=== PATIENT | female | born 1940 | race Asian ===

== ENCOUNTER → 2024-04-09 | Outpatient (CLI) | payer OTHER, MEDICAID, SELFPAY ==
[2024-04-09 10:00] LABS: Collection Type, Urine Clean Catch
[2024-04-09 10:17] LABS: Basophils # (Auto) 0.1 Thou/mm3 (0.0-0.2); Basophils % (Auto) 1 % (0-2.5); Eosinophils # (Auto) 0.3 Thou/mm3 (0.0-0.5); Eosinophils % (Auto) 3 % (0-10); Hematocrit 45.1 % (36.0-46.0); Hemoglobin 13.5 g/dL (12.0-16.0); Immature Granulocytes % (Auto) 0 % (0-0); Immature Granulocytes Auto 0.03 Thou/mm3 (0.00-0.00); Lymphocytes # (Auto) 3.1 Thou/mm3 (1.0-4.8); Lymphocytes % (Auto) 40 % (10-50); Mean Corpuscular HGB Conc 29.9 g/dl (31.0-37.0); Mean Corpuscular Volume 70 fL (80-100); Monocytes # (Auto) 0.5 Thou/mm3 (0.0-0.8); Monocytes % (Auto) 7 % (0-12); Neutrophils # (Auto) 3.8 Thou/mm3 (1.8-7.7); Neutrophils % (Auto) 49 % (37-80); Nucleated Red Blood Cell % 0 /100 WBC (0); Platelet Count 335 Thou/mm3 (140-440); RDW Standard Deviation 36.6 fL (36.4-46.3); Red Blood Count 6.44 Miln/mm3 (4.00-5.20); White Blood Count 7.7 Thou/mm3 (3.6-11.0)
[2024-04-09 10:30] LABS: Parathyroid Hormone Intact 49.3 pg/ml (18.5-88.0)
[2024-04-09 10:35] LABS: Alanine Aminotransferase 11 U/L (10-49); Albumin, Serum 4.2 gm/dL (3.4-4.8); Albumin/Globulin Ratio 1.7 (1.2-2.2); Alkaline Phosphatase 51 U/L (46-116); Anion Gap 10 (7-16); Aspartate Amino Transferase 18 U/L (0-34); BUN/Creatinine Ratio 22 Ratio (12-20); Bilirubin,Total 0.4 mg/dL (0.3-1.2); Blood Urea Nitrogen 29 mg/dL (9-23); Calcium 10.5 mg/dL (8.3-10.6); Calcium (Corrected) 10.5 mg/dL (8.5-10.1); Carbon Dioxide 27.1 mMol/L (20.0-31.0); Cardiac Risk Estimate 2.2 RATIO (3.7-5.6); Chloride 103 mMol/L (98-107); Cholesterol 128 mg/dL (132-200); Creatinine (Component) 1.3 mg/dL (0.6-1.3); Globulin 2.5 gm/dL (2.3-3.5); Glucose 257 mg/dL (74-106); HDL Cholesterol 58 mg/dL (40-60); LDL Cholesterol,Calculated 31 mg/dL (0-130); Osmolality,Calculated 294 (275-295); Sodium 140 mMol/L (136-145); Thyroid Stimulating Hormone 2.49 uIU/mL (0.55-4.78); Total Protein 6.7 gm/dL (5.7-8.2); Triglycerides 197 mg/dL (30-150); eGFR 41 See Note
[2024-04-09 10:41] LABS: Bacteria,Urine 3+; Bilirubin,Urine Negative (Negative); Blood,Urine Trace (Negative); Clarity,Urine Turbid (Clear/Hazy); Color,Urine Lt-Yellow (Lt Yel-Yel); Glucose, Urine 4+ (Negative); Ketones,Urine Negative (Negative); Leukocyte Esterase,Urine Positive (Negative); Nitrite,Urine Negative (Negative); Protein,Urine Trace (Neg - Trace); RBC,Urine 9 /hpf (0-3); Specific Gravity,Urine 1.022 (1.001-1.035); Squamous Epithelial Cell,Urine 1 /hpf (0-5); Urobilinogen,Urine Negative mg/dL (0.0-1.0); WBC,Urine 267 /hpf (0-5)
[2024-04-09 10:44] LABS: Creatinine MALB Rnd Ur 43 mg/dL (30-125); Microalbumin Creat Ratio 147 mg/gCrea (<30); Microalbumin, Random Urine 63 mg/L (0-300)
[2024-04-09 10:47] LABS: Glucose Estimated Average 200 mg/dL (80-131); Hemoglobin A1C 8.6 % Hgb (4.8-6.0)
== END | disposition home or self-care (01) ==
LOC: COPL 09:10
PROVIDERS: PCP Internal Medicine; Referring Provider Internal Medicine; Visit Provider Internal Medicine
DX: I12.9 Hypertensive chronic kidney disease with stage 1 through stage 4 chronic kidney disease, or unspecified chronic kidney disease (principal); E11.22 Type 2 diabetes mellitus with diabetic chronic kidney disease; N18.30 Chronic kidney disease, stage 3 unspecified; E78.5 Hyperlipidemia, unspecified
CPT/HCPCS: 36415; 80053; 80061; 81001; 82043; 82570; 83036; 83970; 84443; 85025

== ENCOUNTER → 2024-08-27 | Outpatient (CLI) | payer OTHER, MEDICAID, SELFPAY ==
[2024-08-27 09:46] LABS: Misc Send Out* See Sep Rpt
[2024-08-27 10:44] LABS: Glucose Estimated Average 166 mg/dL (80-131); Hemoglobin A1C 7.4 % Hgb (4.8-6.0)
[2024-08-27 10:49] LABS: Creatinine,Random Urine 70 mg/dL (30-125)
[2024-08-27 10:50] LABS: Parathyroid Hormone Intact 85.8 pg/ml (18.5-88.0)
[2024-08-27 10:53] LABS: Albumin, Serum 4.2 gm/dL (3.4-4.8); Anion Gap 9 (7-16); BUN/Creatinine Ratio 14 Ratio (12-20); Blood Urea Nitrogen 15 mg/dL (9-23); Calcium 9.2 mg/dL (8.3-10.6); Calcium (Corrected) 9.2 mg/dL (8.5-10.1); Carbon Dioxide 25.1 mMol/L (20.0-31.0); Chloride 111 mMol/L (98-107); Creatinine (Component) 1.1 mg/dL (0.6-1.3); Glucose 146 mg/dL (74-106); Osmolality,Calculated 292 (275-295); Phosphorous 3.2 mg/dL (2.4-5.1); Potassium 3.4 mMol/L (3.4-5.1); Sodium 145 mMol/L (136-145); eGFR 50 See Note
[2024-08-27 10:57] LABS: Vitamin D 25 Hydroxy Total 46.6 ng/mL (7.3-40.2)
== END | disposition home or self-care (01) ==
LOC: COPL 08:02
PROVIDERS: PCP Internal Medicine; Referring Provider Internal Medicine; Visit Provider Internal Medicine
DX: N17.9 Acute kidney failure, unspecified (principal); I10 Essential (primary) hypertension; E78.5 Hyperlipidemia, unspecified
CPT/HCPCS: 36415; 80069; 82306; 82570; 83036; 83970

== ENCOUNTER → 2024-09-22 | Outpatient (CLI) | payer OTHER, MEDICAID, SELFPAY ==
--- NOTE | 2024-09-22 12:30 | XR_ITS ---
Examination: Retroperitoneal ultrasound, complete Technique: Multiple high resolution grayscale images of the retroperitoneum obtained, including kidneys and bladder. Exam date and time:September 22, 2024 1257 hours INDICATIONS: Diagnosis acute kidney failure with tubular necrosis diagnosed 4 months ago FINDINGS: Right kidney 9.9 cm cortex 1.7 cm Left kidney 13.0 cm cortex 1.0 cm Significant left hydronephrosis 10 mm 39 mm calcifications mid pole left kidney Contracted urinary bladder 5 cm calcification lateral to the bladder on the right IMPRESSION: Left renal calculi with significant left hydronephrosis Calcification right lateral to the bladder Recommend CT scan abdomen pelvis without contrast follow-up
--- NOTE | 2024-09-22 13:20 | XR_ITS ---
Examination: Bone densitometry Date and time of exam:September 22, 2024 1324 hours INDICATIONS: Menopause age 45 vitamin D and calcium 6 months, personal history osteoporosis Technique: Lumbar spine and hip total bone mineralization values of an calculated. Peak reference and age match control results have been displayed. Findings: Lumbar spine total bone mineralization is0.927 gm/cm2. This is 1.1 standard deviations below peak reference. This is 1.8 standard deviations above age-matched controls. Hip total bone mineralization is 0.775 gm/cm2 This is 1.4 standard deviations below peak reference. This is 0.9 standard deviations above age-matched controls Impression: There is osteopenia based on lumbar spine measurements. There is osteopenia based on hip measurements Lumbar mineralization is increased 1.2% compared with September 03, 2022 Hip mineralization is increased 1.1% compared with September 03, 2022
--- NOTE | 2024-09-22 13:45 | XR_ITS ---
Examination: Screening digital mammography, bilateral Computer aided detection 3-D breast Tomosynthesis, bilateral Date and time of exam: September 22, 2024 1250 hours Compared to mammograms dating to May 20, 2015 Indication: Screening Technique: Nonmagnified MLO, CC views of the breasts to been obtained, reconstructed from 3-D Tomosynthesis images. R2 computer aided detection program utilized for evaluation of suspicious masses and/or abnormal calcifications. 3-D Tomosynthesis images obtained. Findings: Scattered areas of fibroglandular density. Benign calcifications. No interval suspicious masses Impression: BI-RADS category II: Benign Findings. Recommend 1 year follow-up mammogram.
== END | disposition home or self-care (01) ==
LOC: CDIM 12:34
PROVIDERS: PCP Internal Medicine; Referring Provider Internal Medicine; Visit Provider Internal Medicine
DX: Z12.31 Encounter for screening mammogram for malignant neoplasm of breast (principal); R92.323 Mammographic fibroglandular density, bilateral breasts; R92.1 Mammographic calcification found on diagnostic imaging of breast; N13.2 Hydronephrosis with renal and ureteral calculous obstruction; N32.89 Other specified disorders of bladder; M85.89 Other specified disorders of bone density and structure, multiple sites
CPT/HCPCS: 76770; 77063; 77067; 77080

== ENCOUNTER → 2024-10-20 | Outpatient (CLI) | payer OTHER, MEDICAID, SELFPAY ==
[2024-10-20 08:48] LABS: Glucose Estimated Average 180 mg/dL (80-131); Hemoglobin A1C 7.9 % Hgb (4.8-6.0)
[2024-10-20 08:59] LABS: Basophils # (Auto) 0.1 Thou/mm3 (0.0-0.2); Basophils % (Auto) 1 % (0-2.5); Eosinophils # (Auto) 0.2 Thou/mm3 (0.0-0.5); Eosinophils % (Auto) 2 % (0-10); Hematocrit 42.5 % (36.0-46.0); Hemoglobin 13.0 g/dL (12.0-16.0); Immature Granulocytes Auto 0.04 Thou/mm3 (0.00-0.00); Lymphocytes # (Auto) 3.0 Thou/mm3 (1.0-4.8); Lymphocytes % (Auto) 41 % (10-50); Mean Corpuscular HGB Conc 30.6 g/dl (31.0-37.0); Mean Corpuscular Hemoglobin 21.6 pg (25.0-35.0); Mean Corpuscular Volume 71 fL (80-100); Monocytes # (Auto) 0.7 Thou/mm3 (0.0-0.8); Monocytes % (Auto) 9 % (0-12); Neutrophils # (Auto) 3.4 Thou/mm3 (1.8-7.7); Neutrophils % (Auto) 47 % (37-80); Nucleated Red Blood Cell # 0.00 Thou/mm3 (0.00-0.00); Nucleated Red Blood Cell % 0 /100 WBC (0); Platelet Count 274 Thou/mm3 (140-440); RDW Standard Deviation 37.3 fL (36.4-46.3); Red Blood Count 6.02 Miln/mm3 (4.00-5.20); White Blood Count 7.4 Thou/mm3 (3.6-11.0)
[2024-10-20 09:00] LABS: Alanine Aminotransferase 10 U/L (10-49); Albumin, Serum 4.2 gm/dL (3.4-4.8); Albumin/Globulin Ratio 1.8 (1.2-2.2); Alkaline Phosphatase 48 U/L (46-116); Anion Gap 10 (7-16); Aspartate Amino Transferase 16 U/L (0-34); BUN/Creatinine Ratio 37 Ratio (12-20); Bilirubin,Total 0.8 mg/dL (0.3-1.2); Blood Urea Nitrogen 41 mg/dL (9-23); Calcium 10.1 mg/dL (8.3-10.6); Calcium (Corrected) 10.1 mg/dL (8.5-10.1); Carbon Dioxide 28.6 mMol/L (20.0-31.0); Cardiac Risk Estimate 2.4 RATIO (3.7-5.6); Chloride 102 mMol/L (98-107); Cholesterol 122 mg/dL (132-200); Creatinine (Component) 1.1 mg/dL (0.6-1.3); Globulin 2.3 gm/dL (2.3-3.5); Glucose 142 mg/dL (74-106); HDL Cholesterol 51 mg/dL (40-60); LDL Cholesterol,Calculated 44 mg/dL (0-130); Osmolality,Calculated 293 (275-295); Potassium 4.2 mMol/L (3.4-5.1); Sodium 141 mMol/L (136-145); Thyroid Stimulating Hormone 1.81 uIU/mL (0.55-4.78); Total Protein 6.5 gm/dL (5.7-8.2); Triglycerides 134 mg/dL (30-150); eGFR 50 See Note
[2024-10-20 09:02] LABS: Creatinine MALB Rnd Ur 81 mg/dL (30-125); Microalbumin Creat Ratio 93 mg/gCrea (<30); Microalbumin, Random Urine 75 mg/L (0-300)
== END | disposition home or self-care (01) ==
LOC: COPL 07:25
PROVIDERS: PCP Internal Medicine; Referring Provider Internal Medicine; Visit Provider Internal Medicine
DX: E78.5 Hyperlipidemia, unspecified (principal); I12.9 Hypertensive chronic kidney disease with stage 1 through stage 4 chronic kidney disease, or unspecified chronic kidney disease; E11.22 Type 2 diabetes mellitus with diabetic chronic kidney disease; N18.30 Chronic kidney disease, stage 3 unspecified
CPT/HCPCS: 36415; 80053; 80061; 82043; 82570; 83036; 84443; 85025

== ENCOUNTER → 2024-10-20 | Outpatient (CLI) | payer OTHER, MEDICAID, SELFPAY ==
--- NOTE | 2024-10-20 12:48 | XR_ITS ---
Examination: CT abdomen and pelvis without contrast. Coronal 3-D reconstructions. Sagittal 2-D reconstructions. Date and time of exam:October 20, thousand 25, 1306 hrs. Indications: Flank pain one month, left renal calculi with significant left hydronephrosis on renal sonogram September 22, 2024 CTDI: vol (mGy): 6. DLP: (mGycm): 335 Technique: Axial images of the abdomen have been obtained, 3 mm slice thickness Intravenous contrast material has not been administered. Low dose protocols were performed. One or more of the following dose reduction techniques were used; automated exposure control, adjustment of the mA and/or KV according to patient size, use of iterative reconstruction technique. Findings: No focal liver or splenic lesions Cholelithiasis No pancreatic mass Fat-containing right adrenal nodule, 16 mm Interval moderate left hydronephrosis secondary to 29 mm calculus occupying the left renal pelvis and calyces Aorta normal size Small fat-containing umbilical hernia Normal appendix Calcified areas of uterine fibroid degeneration Bladder intact Impression: Moderate left hydronephrosis secondary to 29 mm diameter type calculus occupying left renal pelvis and lower pole calyces
== END | disposition home or self-care (01) ==
PROVIDERS: PCP Internal Medicine; Referring Provider Internal Medicine; Visit Provider Internal Medicine
DX: N13.30 Unspecified hydronephrosis (principal); N20.0 Calculus of kidney
CPT/HCPCS: 74176

== ENCOUNTER → 2024-11-03 | Outpatient (CLI) | payer OTHER, MEDICAID, SELFPAY ==
[2024-11-03 12:38] LABS: OBS Performed By LAB; OBS QC OK? Yes
[2024-11-03 17:41] LABS: OBS Developer Lot # 4-24-551749; Occult Blood, Stool Negative (Negative); Occult Blood, Stool #2 Negative (Negative); Occult Blood, Stool #3 Negative (Negative)
== END | disposition home or self-care (01) ==
LOC: SLDO 12:32
PROVIDERS: Referring Provider Internal Medicine; Visit Provider Internal Medicine
DX: Z12.11 Encounter for screening for malignant neoplasm of colon (principal)
CPT/HCPCS: 82270

== ENCOUNTER → 2024-11-19 | Outpatient (BNVA) | payer OTHER, MEDICAID, SELFPAY | END | disposition home or self-care (01) | PROVIDERS: PCP Internal Medicine; Referring Provider Internal Medicine; Visit Provider Urology | DX: N20.0 Calculus of kidney (principal); E11.22 Type 2 diabetes mellitus with diabetic chronic kidney disease; I12.9 Hypertensive chronic kidney disease with stage 1 through stage 4 chronic kidney disease, or unspecified chronic kidney disease; N18.9 Chronic kidney disease, unspecified | CPT/HCPCS: 99212; G0463 ==

== ENCOUNTER 2024-12-16 07:50 | Day surgery (SDC) | payer OTHER, MEDICAID, SELFPAY ==
--- NOTE | 2024-12-15 09:40 | EKG_ITS ---
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
[2024-12-15 10:40] VITALS: BMI 27.3
[2024-12-15 12:11] LABS: Alanine Aminotransferase 12 U/L (10-49); Albumin, Serum 4.7 gm/dL (3.4-4.8); Albumin/Globulin Ratio 2.0 (1.2-2.2); Alkaline Phosphatase 49 U/L (46-116); Anion Gap 10 (7-16); Aspartate Amino Transferase 19 U/L (0-34); BUN/Creatinine Ratio 20 Ratio (12-20); Bilirubin,Total 0.7 mg/dL (0.3-1.2); Blood Urea Nitrogen 24 mg/dL (9-23); Calcium 10.3 mg/dL (8.3-10.6); Calcium (Corrected) 10.3 mg/dL (8.5-10.1); Carbon Dioxide 27.9 mMol/L (20.0-31.0); Chloride 106 mMol/L (98-107); Creatinine (Component) 1.2 mg/dL (0.6-1.3); Estimated Creatinine Clearance 26.6 mL/min (>60); Globulin 2.4 gm/dL (2.3-3.5); Glucose 116 mg/dL (74-106); Osmolality,Calculated 291 (275-295); Potassium 3.9 mMol/L (3.4-5.1); Sodium 144 mMol/L (136-145); Total Protein 7.1 gm/dL (5.7-8.2); eGFR 45 See Note
[2024-12-16] VITALS (9 sets, daily range): BP systolic 145–173; BP diastolic 63–79; PULSE 78–98; RESP 13–20; TEMP 36.6–37.3; O2SAT 95–100; BMI 26.7
--- NOTE | 2024-12-16 08:20 | CHAP ---
Gave comfort and prayer to patient before her procedure.
--- NOTE | 2024-12-16 10:00 | XR_ITS ---
EXAMINATION: Retrograde pyelogram left with without KUB Fluoroscopy 11 spot fluoroscopic films of the abdomen INDICATIONS: Left flank pain, moderate left hydronephrosis, 29 mm calculus left renal pelvis and lower pole calyces on CT stone study October 20, 2024, stone manipulation and stent placement today Technique and findings: 11. Spot fluoroscopic films of the abdomen, demonstrating dilated left renal calyces Fluoroscopy 97 seconds radiation dose 25.81 mGy Left ureteral stent upper portion satisfactory position IMPRESSION: Retrograde pyelogram as above
--- NOTE | 2024-12-16 11:16 | SUR.PHASEI ---
1116 Patient arrived to recovery resting comfortably in [facility], LMA removed upon arrival, patient tolerated well, on oxygen via nasal canula 2L, breathing unlabored, vital signs stable, denies pain and nausea, report received from Nikita LEHMAN and Saleem RAMAN
--- NOTE | 2024-12-16 11:24 | ESOP_ITS ---
Date of Procedure 12/16/24 Pre Op Diagnosis 3 cm stone left renal pelvis, high-grade obstruction and hydronephrosis Post Op Diagnosis Same plus stone occupying the whole renal pelvis and drainage of large of pussy material from the left kidney, indicating high-grade obstruction and hydron ephrosis Procedure Cystoscopic examination left retrograde pyelogram Left ureteroscopy stone none operation placement of left ureteral stent in a retrograde fashion under fluoroscopic examination Findings Large 3 cm stone in the renal pelvis left side, high-grade obstruction and hydronephrosis, thinning parenchyma and pussy material coming out of the left collecting system Procedure Description Indication for procedure this is a 84-year-old female she is a diabetic and she was found to have a stone left kidney in the renal pelvis with a high-grade obstruction and hydronephrosis and thinning of the parenchyma. Patient was recommended MAG3 renal scan patient did not keep her appointment. She was also scheduled for cystoscopic examination left retrograde pyelogram placement of left ureteral stent possible laser stone fragmentation. Stone basket Patient was brought to the operating room in a satisfactory condition after appropriate premedication was put on the operating table in a spine position she was appropriately identified by surgeon operating room staff site scope and indications of the procedure were reconfirmed with the patient general anesthesia was given uneventfully. At this time patient received perioperative antibiotics. 20 mg of Lasix IV was given for diuresis and prevention of reflux pyelocaliectasis infectious complications. Patient was positioned in a dorsolithotomy position parts were prepped and draped in the usual sterile fashion 2% lidocaine was instilled into the urethra 21 cystoscope was used to do the cystourethroscopy examination of bladder and all the quadrant was carried out there was no tumor stone identified. There was urine effluxing from the right ureteral orifice no urine was coming out of left ureteral orifice. I passed a open-ended Pollick catheter into the left ureter retrograde pyelogram under fluoroscopic examination was performed. There was tortuosity of the proximal ureter through the open-ended Pollick catheter I passed the safety wire into the renal pelvis next open-ended Pollick catheter was removed and I passed the semirigid ureteroscope along the safety wire and was able to straighten the ureter and was able to manipulate safety wire into the upper pole calyx as soon as I passed the safety bypassing the stone in the renal pelvis into the upper pole calyx wire a lot of pussy material was drained out of left kidney. : Next I tried to pass open-ended Pollick catheter into the upper pole calyx ,catheter will not go beyond the stone into the upper pole calyx because stone was occupying the whole renal pelvis. Next I was able to place 24 cm long 6 Lithuanian double-J stent into left ureter the proximal and curled in the renal pelvis distal in the bladder patient after having tolerated the procedure well was sent to recovery room in a satisfactory condition to be discharged home when patient is stable Patient disposition patient is scheduled for MAG3 renal scan if she has a function in the left kidney she is going to have PCNL procedure done if there is no function she will have left simple nephrectomy Anesthesia GETA Pathology / specimen None Estimated Blood Loss 2 Condition Stable Disposition PACU Surgeon Roula Rosenthal MD Surgical Staff Operation Date: 12/16/24 10:00 Case Staff SWEATER DESIGNER: Steven Wick
--- NOTE | 2024-12-16 11:38 | SUR.PHASEI ---
pt lying in gurney with eyes closed, arouses to voice, breathing unlabored VS stable, report from Antonia Chopra RN
--- NOTE | 2024-12-16 11:55 | SUR.PHASEII ---
pt up to bathroom, able to ambulate to wheelchair with steady gait
--- NOTE | 2024-12-16 12:03 | SUR.PHASEII ---
pt returned to [facility] and connected to monitors
--- NOTE | 2024-12-16 12:14 | SUR.PHASEII ---
Report to Antonia Chopra RN
--- NOTE | 2024-12-16 13:00 | SUR.PHASEII ---
1300 Patient meets discharge criteria from recovery, awake and alert, breathing unlabored, vital signs stable, denies pain, drinking water; tolerating well, denies nausea, voided in the restroom multiple times, able to dress herself into her clothing, discharge instructions given to patient and patients son, son signed discharge instruction. Patient given all her belongings prior to discharge, transported via wheelchair and left in a private vehicle.
== END 2024-12-16 13:00 | disposition home or self-care (01) ==
PROVIDERS: Anesthesiology; PCP Internal Medicine; Referring Provider Urology; Visit Provider Urology
PROC: 0TJB8ZZ Inspection of Bladder, Via Natural or Artificial Opening Endoscopic (ICD-10-PCS; CPT 52000; principal; 2024-12-16 09:45)
DX: N13.2 Hydronephrosis with renal and ureteral calculous obstruction (principal); I12.9 Hypertensive chronic kidney disease with stage 1 through stage 4 chronic kidney disease, or unspecified chronic kidney disease; E11.22 Type 2 diabetes mellitus with diabetic chronic kidney disease; N18.9 Chronic kidney disease, unspecified; Z01.810 Encounter for preprocedural cardiovascular examination
CPT/HCPCS: 52351; 52332; 36415; 74420; 80053; 87086; 93005; A4217; A4649; C1769; C1894; C2617; J1580; J1938; J2250; J2371; J2704; J3010; J3371

== ENCOUNTER → 2024-12-24 | Outpatient (CLI) | payer OTHER, MEDICAID, SELFPAY ==
[2024-12-24 09:40] VITALS: BMI 26.9
[2024-12-24 10:33] LABS: Alanine Aminotransferase 13 U/L (10-49); Albumin, Serum 4.2 gm/dL (3.4-4.8); Albumin/Globulin Ratio 1.7 (1.2-2.2); Alkaline Phosphatase 50 U/L (46-116); Anion Gap 13 (7-16); Aspartate Amino Transferase 21 U/L (0-34); BUN/Creatinine Ratio 19 Ratio (12-20); Bilirubin,Total 0.5 mg/dL (0.3-1.2); Blood Urea Nitrogen 25 mg/dL (9-23); Calcium 9.5 mg/dL (8.3-10.6); Calcium (Corrected) 9.5 mg/dL (8.5-10.1); Carbon Dioxide 26.1 mMol/L (20.0-31.0); Chloride 104 mMol/L (98-107); Creatinine (Component) 1.3 mg/dL (0.6-1.3); Estimated Creatinine Clearance 24.4 mL/min (>60); Globulin 2.5 gm/dL (2.3-3.5); Glucose 236 mg/dL (74-106); Osmolality,Calculated 297 (275-295); Potassium 3.5 mMol/L (3.4-5.1); Sodium 143 mMol/L (136-145); Total Protein 6.7 gm/dL (5.7-8.2); eGFR 41 See Note
== END | disposition home or self-care (01) ==
LOC: SLAB 12-31 08:07
PROVIDERS: Anesthesiology; PCP Internal Medicine; Referring Provider Urology; Visit Provider Urology
DX: N20.0 Calculus of kidney (principal); N13.30 Unspecified hydronephrosis
CPT/HCPCS: 36415; 80053

== ENCOUNTER → 2024-12-29 | Outpatient (CLI) | payer OTHER, MEDICAID, SELFPAY ==
--- NOTE | 2024-12-29 13:13 | XR_ITS ---
EXAMINATION: Nuclear medicine kidney flow and function multiple studies Date and time: December 29, 2024, 1522 hours INDICATIONS: History left kidney stones frequent urination, hypertension, diabetes TECHNIQUE AND FINDINGS: Intravenous administration 10.4 mCi technetium 99 M MAG3 Flow and function curves generated to 60 minutes Minimal left renal flow, no left renal function Normal right renal flow and function IMPRESSION: No left renal function
== END | disposition home or self-care (01) ==
LOC: SNUC 12:59
PROVIDERS: PCP Internal Medicine; Referring Provider Urology; Visit Provider Urology
DX: N20.0 Calculus of kidney (principal)
CPT/HCPCS: 78708; A9562

== ENCOUNTER → 2025-01-14 | Outpatient (CLI) | payer OTHER, MEDICAID, SELFPAY ==
[2025-01-14 09:50] LABS: Collection Type, Urine Clean Catch
[2025-01-14 10:24] LABS: Basophils # (Auto) 0.1 Thou/mm3 (0.0-0.2); Basophils % (Auto) 1 % (0-2.5); Eosinophils # (Auto) 0.2 Thou/mm3 (0.0-0.5); Eosinophils % (Auto) 3 % (0-10); Hematocrit 44.4 % (36.0-46.0); Hemoglobin 13.6 g/dL (12.0-16.0); Immature Granulocytes Auto 0.02 Thou/mm3 (0.00-0.00); Lymphocytes # (Auto) 2.4 Thou/mm3 (1.0-4.8); Lymphocytes % (Auto) 38 % (10-50); Mean Corpuscular HGB Conc 30.6 g/dl (31.0-37.0); Mean Corpuscular Hemoglobin 21.9 pg (25.0-35.0); Mean Corpuscular Volume 72 fL (80-100); Monocytes # (Auto) 0.5 Thou/mm3 (0.0-0.8); Monocytes % (Auto) 8 % (0-12); Neutrophils # (Auto) 3.1 Thou/mm3 (1.8-7.7); Neutrophils % (Auto) 49 % (37-80); Nucleated Red Blood Cell # 0.00 Thou/mm3 (0.00-0.00); Nucleated Red Blood Cell % 0 /100 WBC (0); Platelet Count 314 Thou/mm3 (140-440); RDW Standard Deviation 37.3 fL (36.4-46.3); Red Blood Count 6.21 Miln/mm3 (4.00-5.20); White Blood Count 6.3 Thou/mm3 (3.6-11.0)
[2025-01-14 10:29] LABS: Parathyroid Hormone Intact 86.1 pg/ml (18.5-88.0)
[2025-01-14 10:37] LABS: Creatinine MALB Rnd Ur 89 mg/dL (30-125); Microalbumin Creat Ratio 219 mg/gCrea (<30); Microalbumin, Random Urine 195 mg/L (0-300)
[2025-01-14 10:38] LABS: Alanine Aminotransferase 14 U/L (10-49); Albumin, Serum 4.5 gm/dL (3.4-4.8); Albumin/Globulin Ratio 2.3 (1.2-2.2); Alkaline Phosphatase 51 U/L (46-116); Anion Gap 12 (7-16); Aspartate Amino Transferase 19 U/L (0-34); BUN/Creatinine Ratio 23 Ratio (12-20); Bilirubin,Total 0.7 mg/dL (0.3-1.2); Blood Urea Nitrogen 27 mg/dL (9-23); Calcium 9.4 mg/dL (8.3-10.6); Calcium (Corrected) 9.4 mg/dL (8.5-10.1); Carbon Dioxide 27.3 mMol/L (20.0-31.0); Cardiac Risk Estimate 2.6 RATIO (3.7-5.6); Chloride 104 mMol/L (98-107); Cholesterol 128 mg/dL (132-200); Creatinine (Component) 1.2 mg/dL (0.6-1.3); Globulin 2.0 gm/dL (2.3-3.5); Glucose 166 mg/dL (74-106); HDL Cholesterol 50 mg/dL (40-60); LDL Cholesterol,Calculated 45 mg/dL (0-130); Osmolality,Calculated 294 (275-295); Potassium 4.2 mMol/L (3.4-5.1); Sodium 143 mMol/L (136-145); Thyroid Stimulating Hormone 2.67 uIU/mL (0.55-4.78); Total Protein 6.5 gm/dL (5.7-8.2); Triglycerides 164 mg/dL (30-150); eGFR 45 See Note
[2025-01-14 10:46] LABS: Glucose Estimated Average 177 mg/dL (80-131); Hemoglobin A1C 7.8 % Hgb (4.8-6.0)
[2025-01-14 10:56] LABS: Vitamin D 25 Hydroxy Total 41.0 ng/mL (7.3-40.2)
[2025-01-14 11:04] LABS: Bacteria,Urine 1+; Bilirubin,Urine Negative (Negative); Blood,Urine 1+ (Negative); Color,Urine Yellow (Lt Yel-Yel); Glucose, Urine 4+ (Negative); Ketones,Urine Negative (Negative); Leukocyte Esterase,Urine Positive (Negative); Nitrite,Urine Positive (Negative); PH,Urine 6.0 (5.0-7.0); Protein,Urine 1+ (Neg - Trace); RBC,Urine 38 /hpf (0-3); Specific Gravity,Urine 1.022 (1.001-1.035); Squamous Epithelial Cell,Urine 1 /hpf (0-5); Urobilinogen,Urine Negative mg/dL (0.0-1.0); WBC,Urine 1462 /hpf (0-5)
[2025-01-14 11:06] LABS: Clarity,Urine Hazy (Clear/Hazy)
== END | disposition home or self-care (01) ==
LOC: COPL 09:04
PROVIDERS: PCP Internal Medicine; Referring Provider Internal Medicine; Visit Provider Internal Medicine
DX: E78.5 Hyperlipidemia, unspecified (principal); E11.9 Type 2 diabetes mellitus without complications; I12.9 Hypertensive chronic kidney disease with stage 1 through stage 4 chronic kidney disease, or unspecified chronic kidney disease; N18.30 Chronic kidney disease, stage 3 unspecified
CPT/HCPCS: 36415; 80053; 80061; 81001; 82043; 82306; 82570; 83036; 83970; 84443; 85025